=== PATIENT | female | born 1955 | race Caucasian/White ===

== ENCOUNTER → 2017-06-27 | Outpatient (CLI) | payer OTHER ==
[~2017-06-27] MED LIST: ADULT LOW DOSE81 MG PO; LEVOTHYROXIN0.025 M1 PO; LISINOPRIL-HYDR1 TAB PO; METOPROLOL SUCC50 M1 PO
--- NOTE | 2017-06-27 14:45 | RADIOLOGY REPORT PS360 ---
History and Indications: Hypertension, family history, chest pain and fatigue. Procedure: Patient exercised on Roque protocol 6 minutes, resting heart rate was 53 bpm, resting blood pressure 153/69, with exercise maximum heart rate achieved was 1 21 bpm which is equal to 77% of the maximum predicted heart rate and a blood pressure was 180/65. Test was started due to shortness of breath and burning chest discomfort. Patient has adequate exercise capacity achieved 7mets of workload on treadmill the blood pressure response to exercise was adequate. Patient did not achieve the target heart rate. Electrocardiogram: Resting electrocardiogram showed sinus bradycardia, with exercise excessive baseline artifact seen, less than 1.[address] segment depression noted from the baseline EKG. The EKG portion of the exercise Myoview is nondiagnostic as patient did not achieve the target heart rate. Cardiac stress and resting SPECT images: Cardiac stress and rest SPECT images were obtained using technetium 99 Myoview 10.6 mCi at rest and 32.3 mCi at stress, gated SPECT further analysis of segmental wall motion and calculation of the ejection fraction also done. Cardiac stress and rest SPECT images show decreased tracer activity in the anteroapical and anteroseptal wall which improves on the resting images suggestive of reversible ischemia, computer derived ejection fraction 65% with no obvious regional wall motion abnormality, right ventricle is normal size and contractility. Conclusion: 1. The EKG portion of the exercise Myoview is nondiagnostic as patient did not achieve the target heart rate, patient has adequate exercise capacity achieved 7mets of workload on treadmill, the blood pressure response to exercise was adequate, test was started due to shortness of breath and burning chest discomfort. 2. Scintigraphic evidence of mild reversible ischemia involving the anteroapical and anteroseptal wall, computer derived ejection fraction is over 65% with no obvious regional wall motion abnormality, right ventricle is normal size and contractility. 3. Abnormal exercise Myoview study.
== END ==
LOC: RAD 06:19
DX: R07.2 Precordial pain (principal)
CPT/HCPCS: A9502